=== PATIENT | male | born 1945 | race Caucasian/White ===

== ENCOUNTER 2018-09-03 10:43 | Emergency (ER) | payer MEDICARE, BC ==
[2018-09-03] MEDS ORDERED: TYLENOL SUSPENSION 160 MG/5 ML ONE (11:25)
[2018-09-03] MEDS ORDERED: Sodium Chloride 0.9% 1000 ML 1,000 ML ONE (11:25)
[2018-09-03] MEDS: Sodium Chloride 0.9% 1000 ML 1,000 ML IV STA (11:26)
[2018-09-03] MEDS: TYLENOL SUSPENSION 160 MG/5 ML PO ONE (11:26)
[2018-09-03 11:33] LABS: Hematocrit 38.7 % (42-50); Hemoglobin 12.7 gm/dl (12.5-18.0); Mean Cell Volume 87.6 fl (78-100); Mean Corpuscular Hemoglobin 28.7 pg (26-32); Mean Corpuscular Hgb Concent. 32.8 g/dl (32-36); Mean Platelet Volume 11.8 fl (6-9.5); Platelet Count 101 K/mm3 (150-450); Red Blood Count 4.42 M/mm3 (4.1-5.6); Red Cell Distribution Width 16.5 % (11.5-14.0)
[2018-09-03] MEDS: Zofran 4 MG/2 ML VIAL IV ONE (11:34)
[2018-09-03] MEDS ORDERED: Zofran 4 MG/2 ML VIAL ONE (11:34)
[2018-09-03 11:38] LABS: White Blood Count 1.6 K/mm3 (4.0-10.5)
[2018-09-03 11:39] LABS: INR 1.04 (0.8-3.0); PROTIME 12.1 SECONDS (8.83-12.87)
[2018-09-03 11:44] LABS: ALBUMIN 3.5 g/dL (3.5-5.0); ALKALINE PHOSPHATASE 228 U/L (38-126); ANION GAP 11.5 MEQ/L (5-15); BLOOD UREA NITROGEN 12 mg/dL (9-20); CHLORIDE 100 mmol/L (98-107); Calcium 8.5 mg/dL (8.4-10.2); Carbon Dioxide 27 mmol/L (22-30); Creatinine 1 0.71 mg/dL (0.66-1.25); Glucose 138 mg/dL (74-106); Potassium 4.1 mmol/L (3.5-5.1); SGOT/AST 63 U/L (17-59); SGPT/ALT 91 U/L (0-50); SODIUM 134 mmol/L (137-145)
[2018-09-03 11:59] LABS: ANISOCYTOSIS 1+; ATYPICAL LYMPHS 6 %; BAND 27 % (0.0-2.0); Eosinophil 5 % (0.00-3.0); Lymphocytes 4 % (24-44); Monocyte 7 % (0.0-12.0); Neutrophils 51 % (36.-66.); Poikilocytosis 1+; Total Cells Counted 100
[2018-09-03 12:00] LABS: Platelet Estimate DECREASED (NORMAL); Toxic Granulation 1+
[2018-09-03] MEDS: Tussionex Pennkinetic Susp PO ONE (12:51)
--- NOTE | 2018-09-03 15:27 | ERPHSYRPT ---
- History of Present Illness Source: patient Exam Limitations: no limitations Patient Subjective Stated Complaint: pt here for not eating or drinking well for 3-4 days now, he states he is getting chemo and radiation for lung and esphogeal cancer,he aslo co cough for weeks that is thick l[place]a in color, Triage Nursing Assessment: pt alert, resp easy, skin w/d/p, pt has port to right side of chest,no edema noted Physician History: Pt is a 73 y/o male with a h/o esophageal and lung CA. Pt is getting chemo and radiation for treatment. He presented to the ED with severe cough, dehydration and pain with swallowing. Pt denies F/C/S. He states, the cough is so severe, he can't get any rest. Pt does have hemoptysis. He does have hesitancy with urination and severe diarrhea. Timing/Duration: day(s) Cough Quality/Degree: severe (with blood.) Possible Cause: frequent episodes Associated Symptoms: cough, headache Allergies/Adverse Reactions: Iodinated Contrast- Oral and IV Dye Allergy (Verified 09/03/18 11:00) morphine Allergy (Verified 09/03/18 11:00) Hx Tetanus, Diphtheria Vaccination/Date Given: No Hx Influenza Vaccination/Date Given: Yes Hx Pneumococcal Vaccination/Date Given: No Immunizations Up to Date: Yes - Review of Systems Constitutional: Fatigue, Malaise Eyes: No Symptoms Ears, Nose, & Throat: No Symptoms Respiratory: Cough, Other (hemoptysis) Abdominal/Gastrointestinal: Nausea, Vomiting, Diarrhea Genitourinary Symptoms: Hesitancy Musculoskeletal: Myalgias Skin: Skin Lesions (secondary to radiation) Neurological: No Dizziness, No Focal Weakness, No Sensory Changes - Past Medical History Neurological History: Peripheral Neuropathy ENT History: Other Cardiac History: Coronary Artery Disease, High Cholesterol, Hypertension, Myocardial Infarction ([place]) Respiratory History: COPD, Lung Cancer Endocrine Medical History: Diabetes Type II Musculoskeletal History: Arthritis - Past Surgical History Past Surgical History: Yes Cardiac: CABG, Cardiac Catheterization, Cardiac Stent Gastrointestinal: Cholecystectomy Musculoskeletal: Orthopedic Surgery Other Surgical History: port a cath,knee surgery - Social History Smoking Status: Current every day smoker Exposure to second hand smoke: Yes Drug Use: none Patient Lives Alone: No - Nursing Vital Signs Nursing Vital Signs: Initial Vital Signs Temperature 97.6 F 09/03/18 10:46 Pulse Rate 63 09/03/18 10:46 Respiratory Rate 16 09/03/18 10:46 Blood Pressure 143/75 09/03/18 10:46 O2 Sat by Pulse Oximetry 96 09/03/18 10:46 Pain Scale Pain Intensity 2 - Physical Exam General Appearance: moderate distress Eye Exam: PERRL/EOMI, eyes nml inspection Ears, Nose, Throat Exam: normal ENT inspection, TMs normal, pharynx normal, moist mucous membranes Neck Exam: normal inspection, non-tender, supple, full range of motion Respiratory Exam: crackles/rales (fine, at the bases.) Cardiovascular Exam: regular rate/rhythm, normal heart sounds Gastrointestinal/Abdomen Exam: soft, No tenderness Extremity Exam: normal inspection, normal range of motion Neurologic Exam: alert, oriented x 3, cooperative, normal mood/affect, sensation nml, No motor deficits SpO2: 93 - Course Nursing assessment & vital signs reviewed: Yes - CT Exams Chest CT Interpretation: Tele-radiologist Report (Alveolar consolidation. 1.6cm nodule, unchanged in size.) Ordered Tests: Active Orders 24 hr Category Date Time Status IV Insertion STAT Care 09/03/18 11:13 Active CHEST WITHOUT CONTRAST [CT] Stat Exams 09/03/18 11:49 Taken CBC W DIFF Stat Lab 09/03/18 11:20 Results CMP Stat Lab 09/03/18 11:20 Completed Manual Differential NC Stat Lab 09/03/18 11:20 Results PROTIME WITH INR Stat Lab 09/03/18 11:20 Completed Pathologist Review Stat Lab 09/03/18 11:20 Results UA W/RFX UR CULTURE Stat Lab 09/03/18 11:12 Uncollected Medication Summary Generic Name Dose Route Start Last Admin Trade Name Freq PRN Reason Stop Dose Admin Piperacillin Sod/Tazobactam 100 mls @ 200 mls/hr 09/03/18 15:15 Sod 4.5 gm/ Dextrose IV 09/03/18 15:44 STAT ONE Vancomycin HCl 1 gm in 250 mls @ 167 mls/hr 09/03/18 15:15 Vancomycin 1gm/ Ns 250ml IV 09/03/18 16:44 STAT ONE Discontinued Medications Generic Name Dose Route Start Last Admin Trade Name Freq PRN Reason Stop Dose Admin Acetaminophen 1,000 mg 09/03/18 11:20 09/03/18 11:26 Tylenol Suspension 160 Mg/5 Ml PO 09/03/18 11:21 1,000 mg STAT ONE Administration Acetaminophen Confirm 09/03/18 11:25 Tylenol Suspension 160 Mg/5 Ml Administered 09/03/18 11:26 Dose 160 mg .ROUTE .STK-MED ONE Chlorphenir/Hydrocodone Polistirex 5 ml 09/03/18 12:36 09/03/18 12:51 Tussionex Pennkinetic Susp PO 09/03/18 12:37 5 ml STAT ONE Administration Sodium Chloride 1,000 mls @ 999 mls/hr 09/03/18 11:13 09/03/18 11:26 Sodium Chloride 0.9% 1000 Ml IV 09/03/18 12:13 999 mls/hr .Q1H1M STA Administration Sodium Chloride Confirm 09/03/18 11:25 Sodium Chloride 0.9% 1000 Ml Administered 09/03/18 11:26 Dose 1,000 mls @ ud .ROUTE .STK-MED ONE Ondansetron HCl 4 mg 09/03/18 11:33 09/03/18 11:34 Zofran 4 Mg/2 Ml Vial IV 09/03/18 11:34 4 mg STAT ONE Administration Ondansetron HCl Confirm 09/03/18 11:34 Zofran 4 Mg/2 Ml Vial Administered 09/03/18 11:35 Dose 4 mg .ROUTE .STK-MED ONE Lab/Rad Data: Laboratory Result Diagrams 09/03/18 11:20 09/03/18 11:20 Laboratory Results 09/03/18 09/03/18 09/03/18 Range/Units 11:20 11:20 11:20 WBC 1.6 L* (4.0-10.5) K/mm3 RBC 4.42 (4.1-5.6) M/mm3 Hgb 12.7 (12.5-18.0) gm/dl Hct 38.7 L (42-50) % MCV 87.6 (78-100) fl MCH 28.7 (26-32) pg MCHC 32.8 (32-36) g/dl RDW 16.5 H (11.5-14.0) % Plt Count 101 L (150-450) K/mm3 MPV 11.8 H (6-9.5) fl Segmented Neutrophils 51 (36.-66.) % Band Neutrophils 27 H (0.0-2.0) % Lymphocytes (Manual) 4 L (24-44) % Monocytes (Manual) 7 (0.0-12.0) % Eosinophils (Manual) 5 H (0.00-3.0) % Atypical Lymphocytes 6 % Toxic Granulation 1+ Platelet Estimate DECREASED (NORMAL) RBC Morphology ABNORMAL Poikilocytosis 1+ Anisocytosis 1+ Smear Path Review Pending PT 12.1 (8.83-12.87) SECONDS INR 1.04 (0.8-3.0) Sodium 134 L (137-145) mmol/L Potassium 4.1 (3.5-5.1) mmol/L Chloride 100 (98-107) mmol/L Carbon Dioxide 27 (22-30) mmol/L Anion Gap 11.5 (5-15) MEQ/L BUN 12 (9-20) mg/dL Creatinine 0.71 (0.66-1.25) mg/dL Estimated GFR > 60.0 ML/MIN Glucose 138 H (74-106) mg/dL Calcium 8.5 (8.4-10.2) mg/dL Total Bilirubin 1.50 H (0.2-1.3) mg/dL AST 63 H (17-59) U/L ALT 91 H (0-50) U/L Alkaline Phosphatase 228 H (38-126) U/L Serum Total Protein 6.0 L (6.3-8.2) g/dL Albumin 3.5 (3.5-5.0) g/dL - Progress Progress: unchanged Air Movement: fair Progress Note: Pt had labs in the ED that showed leukopenia with WBCs of 1.6. Other labs were normal. I was not able to get UA, as pt has hesitancy, and was able to urinate with diarrhea episode only. Chest CT was done without contrast, secondary to pt 's dye allergy, and showed PNA. Secondary to his oncologists and radiation oncologist being in [place], and pt's request, he will be transfered to [place] for his PNA. Zosyn and Vanco were initiated in the ED. Zofran was given for nausea , and Tussionex syr for cough. 09/03/18 15:34 Blood Culture(s) Obtained: No Antibiotics given: Yes Counseled pt/family regarding: lab results, rad results - Departure Time of Disposition: 15:37 Departure Disposition: Transfer Clinical Impression: PNA in immunocompromised host Condition: Stable Critical Care Time: No Referrals: KRISHAN CARDENAS [Primary Care Provider] - Additional Instructions: Pt will be transfered to [facility], as direct admit. Dr Mesa accepts.
[2018-09-03] MEDS ORDERED: Zosyn INJ IV ONE (15:35)
[2018-09-03] MEDS ORDERED: Sodium Chloride 0.9% 100 ML IVPB 100 ML IV ONE (15:36)
[2018-09-03] MEDS: Zosyn INJ 4.5 GM in D5w 100ML Mini Bag 100 ML 100 ML IV ONE (15:43)
[2018-09-03] MEDS ORDERED: Vancomycin 1GM/ Ns 250ML*** 250 ML IV ONE (16:25)
[2018-09-03] MEDS: Vancomycin 1GM/ Ns 250ML*** 1 GM/250 ML IVPB IV ONE (16:28)
[2018-09-03 16:59] VITALS: BP 122/78; PULSE 72; O2SAT 98
--- NOTE | 2018-09-03 21:54 | XRAY ---
Indication: Cough. Dysphagia. 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 Multiple contiguous axial images obtained through the chest without contrast as ordered. Comparison: Outside CT chest without contrast from [facility] in [place] dictated May 25, 2018. Again diffuse peripheral fibrosis/scarring more than before, greatest left upper lobe. Also new moderate bibasilar atelectasis. Stable 1.7 x 2.7 cm lobular left upper lobe mass. No new pulmonary mass, consolidation, or effusion. Heart is not enlarged again with CABG surgery. Aorta remains mildly arteriosclerotic without aneurysmal dilatation. New right Port-A-Cath. No pathologic mediastinal lymphadenopathy. Stable mid to distal esophageal wall thickening and small hiatal hernia. Bony thorax intact again with flowing osteophytes throughout the spine and sternotomy wires. Limited upper abdomen unremarkable again with incidental cholecystectomy clips and calcified splenic granulomas. Impression: 1. Grossly stable left upper lobe mass presumed known carcinoma. 2. Increasing diffuse peripheral fibrosis/scarring presumably related to patient's therapy. 3. No acute cardiopulmonary abnormalities on this noncontrast exam. 4. Stable small hiatal hernia and mid to distal esophageal wall thickening possibly esophagitis from gastroesophageal reflux. Comment: Preliminary interpretation was made by [facility]. No critical discrepancy. CTDI 16.74
== END 2018-09-03 17:01 | disposition short-term general hospital (02) ==
LOC: ED 10:43
DX: J18.9 Pneumonia, unspecified organism (principal); I25.10 Atherosclerotic heart disease of native coronary artery without angina pectoris; I10 Essential (primary) hypertension; C34.90 Malignant neoplasm of unspecified part of unspecified bronchus or lung; Z79.899 Other long term (current) drug therapy; E78.00 Pure hypercholesterolemia, unspecified; J44.9 Chronic obstructive pulmonary disease, unspecified; E11.9 Type 2 diabetes mellitus without complications; M19.90 Unspecified osteoarthritis, unspecified site; G62.9 Polyneuropathy, unspecified; C15.9 Malignant neoplasm of esophagus, unspecified; R51 Headache
CPT/HCPCS: 36415; 71250; 80053; 85025; 85610; 87040; 96365; 96374; 99285; J2405; J2543; J3370; A9270-GY

== ENCOUNTER 2018-10-12 14:40 | Emergency (ER) | payer MEDICARE, BC ==
[2018-10-12 15:06] VITALS: O2SAT 98
--- NOTE | 2018-10-12 15:25 | ERPHSYRPT ---
- History of Present Illness Time Seen by Provider: 10/12/18 15:10 Source: patient, family Exam Limitations: no limitations Patient Subjective Stated Complaint: weakness, hasn't eaten anything in over a week, sleeps 23 hours a day, urine is really dark and has blood clots in it, nausea, throat cancer, lung cancer, last radiation and chemo 2 weeks ago today Triage Nursing Assessment: Came in with a wheelchair, weak, tachycardic, HTN, port in right chest, lungs clear, denies pain, sores on back where he states that he scratches, family stated that he is developing a pressure ulcer to the right buttock and the skin has not broken apart, no edema Physician History: 73 y/o white male with h/o lung cancer and esophageal cancer who received last chemoradiation 2 weeks ago, presents with weakness and poor oral intake of solids and liquids. pt on marinol for appetite stimulation. pt denies cp, denies soa and denies abd pain. pt has a very poor heart per pt family. pt seen by dr. reyes, mains and service supervisor, who recently did not release pt to receive more chemotx because of poor cardiac function. pt has a feeding tube placement scheduled at [facility] on TuesdayOctober 16. pt denies n/v/ d. pt sleeps 23 hours a day per family. pt recently dx with afib. Timing/Duration: week(s) (2 to 3) Severity: moderate Modifying Factors: Improves With: eating Associated Symptoms: loss of appetite, weakness Allergies/Adverse Reactions: Iodinated Contrast- Oral and IV Dye Allergy (Verified 10/12/18 15:06) morphine Allergy (Verified 10/12/18 15:06) Home Medications: Amantadine HCl [Amantadine] 100 mg PO BID 10/12/18 [History] Aspirin EC 81 mg [Ecotrin 81 mg] 81 mg PO DAILY 10/12/18 [History] Atorvastatin Calcium 40 mg PO DAILY 10/12/18 [History] Benzonatate 200 mg PO 5XD PRN 10/12/18 [History] Budesonide 4 ml PO QAM 10/12/18 [History] Fluoxetine HCl 60 mg PO DAILY 10/12/18 [History] Furosemide 20 mg [Lasix 20 mg] 20 mg PO UD 10/12/18 [History] Gabapentin 300 mg PO TID 10/12/18 [History] Hydrocodone/Acetaminophen [Hydrocodone-Acetamin 5-325 mg] 1 tab PO Q4H PRN PRN 10/12/18 [History] Hydrocodone/Chlorpheniramine [Vituz Solution] 2.5 ml PO Q12H PRN PRN 10/12/18 [ History] Lorazepam 0.5 mg [Ativan 0.5 MG] 0.5 mg PO Q4H PRN 10/12/18 [History] Magnesium Oxide [Magnesium] 500 mg PO DAILY 10/12/18 [History] Metoprolol Succinate 25 mg Xl* [Toprol-Xl 25MG Tablets] 12.5 mg PO BID [History] Omeprazole Magnesium 20 mg PO DAILY 10/12/18 [History] Hx Tetanus, Diphtheria Vaccination/Date Given: No Hx Influenza Vaccination/Date Given: Yes Hx Pneumococcal Vaccination/Date Given: No - Review of Systems Constitutional: Lethargy, Malaise, Weakness Eyes: No Symptoms Ears, Nose, & Throat: No Symptoms Respiratory: No Symptoms Cardiac: No Symptoms Abdominal/Gastrointestinal: No Symptoms Genitourinary Symptoms: No Symptoms Musculoskeletal: No Symptoms Skin: No Symptoms Neurological: No Symptoms Psychological: No Symptoms Endocrine: No Symptoms Hematologic/Lymphatic: No Symptoms Immunological/Allergic: No Symptoms All Other Systems: Reviewed and Negative - Past Medical History Pertinent Past Medical History: Yes Neurological History: Peripheral Neuropathy ENT History: Other Cardiac History: Coronary Artery Disease, High Cholesterol, Hypertension, Myocardial Infarction ([place]) Respiratory History: COPD, Lung Cancer Endocrine Medical History: Diabetes Type II Musculoskeletal History: Arthritis GI Medical History: Hernia Other Medical History: throat cancer - Past Surgical History Past Surgical History: Yes Cardiac: CABG, Cardiac Catheterization, Cardiac Stent Gastrointestinal: Cholecystectomy Musculoskeletal: Orthopedic Surgery Other Surgical History: port a cath,knee surgery - Social History Smoking Status: Current some day smoker How long have you smoked: 54 years Exposure to second hand smoke: Yes Drug Use: none Patient Lives Alone: No - Nursing Vital Signs Nursing Vital Signs: Initial Vital Signs Temperature 97.7 F 10/12/18 14:51 Pulse Rate 110 H 10/12/18 14:51 Respiratory Rate 18 10/12/18 14:51 Blood Pressure 150/117 10/12/18 14:51 O2 Sat by Pulse Oximetry 98 04/18/19 14:51 Pain Scale Pain Intensity 0 - Physical Exam General Appearance: no apparent distress, alert Eye Exam: PERRL/EOMI Ears, Nose, Throat Exam: normal ENT inspection, dry mucous membranes Neck Exam: normal inspection, non-tender, supple, full range of motion Respiratory Exam: normal breath sounds, lungs clear, airway intact, No chest tenderness, No respiratory distress Cardiovascular Exam: regular rate/rhythm, normal heart sounds, normal peripheral pulses Gastrointestinal/Abdomen Exam: soft, normal bowel sounds, No tenderness Rectal Exam: not done Back Exam: normal inspection, normal range of motion, vertebral tenderness, No CVA tenderness Extremity Exam: normal inspection, normal range of motion, pelvis stable Neurologic Exam: alert, oriented x 3, normal mood/affect Skin Exam: normal color Lymphatic Exam: No adenopathy SpO2 Interpretation: normal SpO2: 98 O2 Delivery: Room Air - Course EKG Interpreted by Me: RATE (105), A-fib, Left [place] Deviation, Right Bundle Branch Block, Other (left ant fascicular block; prolonged qrs; no comparison) Ordered Tests: Active Orders 24 hr Category Date Time Status Clean Catch Urine Specimen STAT Care 10/12/18 15:25 Active IV Insertion STAT Care 10/12/18 15:25 Active CBC W DIFF Stat Lab 10/12/18 14:50 Completed CMP Stat Lab 10/12/18 14:50 Completed Manual Differential NC Stat Lab 10/12/18 14:50 Completed PROTIME WITH INR Stat Lab 10/12/18 14:50 Completed UA W/RFX UR CULTURE Stat Lab 10/12/18 15:29 Completed Medication Summary Discontinued Medications Generic Name Dose Route Start Last Admin Trade Name Allenq PRN Reason Stop Dose Admin Sodium Chloride 500 mls @ 500 mls/hr 10/12/18 15:30 10/12/18 17:29 Sodium Chloride 0.9% 500 Ml IV 10/12/18 16:29 Infused .Q1H ONE Infusion Sodium Chloride Confirm 10/12/18 15:48 Sodium Chloride 0.9% 500 Ml Administered 10/12/18 15:49 Dose 500 mls @ ud IV .STK-MED ONE Lactated Ringer's 500 mls @ 500 mls/hr 10/12/18 17:25 10/12/18 18:39 Lactated Ringers IV 10/12/18 18:24 Infused .Q1H ONE Infusion Lactated Ringer's Confirm 10/12/18 17:30 Lactated Ringers Administered 10/12/18 17:31 Dose 1,000 mls @ ud IV .STK-MED ONE Lab/Rad Data: Laboratory Result Diagrams 10/12/18 14:50 10/12/18 14:50 Laboratory Results 10/12/18 10/12/18 10/12/18 Range/Units 15:29 14:50 14:50 WBC (4.0-10.5) K/mm3 RBC (4.1-5.6) M/mm3 Hgb (12.5-18.0) gm/dl Hct (42-50) % MCV (78-100) fl MCH (26-32) pg MCHC (32-36) g/dl RDW (11.5-14.0) % Plt Count (150-450) K/mm3 MPV (6-9.5) fl Segmented Neutrophils (36.-66.) % Lymphocytes (Manual) (24-44) % Toxic Granulation Platelet Estimate (NORMAL) RBC Morphology Anisocytosis PT 14.5 H (8.83-12.87) SECONDS INR 1.24 (0.8-3.0) Sodium 139 (137-145) mmol/L Potassium 3.3 L (3.5-5.1) mmol/L Chloride 104 (98-107) mmol/L Carbon Dioxide 20 L (22-30) mmol/L Anion Gap 18.1 H (5-15) MEQ/L BUN 13 (9-20) mg/dL Creatinine 0.98 (0.66-1.25) mg/dL Estimated GFR > 60.0 ML/MIN Glucose 208 H (74-106) mg/dL Calcium 8.8 (8.4-10.2) mg/dL Total Bilirubin 1.30 (0.2-1.3) mg/dL AST 46 (17-59) U/L ALT 58 H (0-50) U/L Alkaline Phosphatase 143 H (38-126) U/L Serum Total Protein 6.2 L (6.3-8.2) g/dL Albumin 3.3 L (3.5-5.0) g/dL Urine Color DOMO (YELLOW) Urine Appearance SLIGHTLY CLOUDY (CLEAR) Urine pH 5.0 (5-6) Ur Specific [place] 1.026 (1.005-1.025) Urine Protein 30 (Negative) Urine Ketones TRACE (NEGATIVE) Urine Blood NEGATIVE (0-5) Olvin/ul Urine Nitrite NEGATIVE (NEGATIVE) Urine Bilirubin NEGATIVE (NEGATIVE) Urine Urobilinogen 4 (0-1) mg/dL Ur Leukocyte Esterase NEGATIVE (NEGATIVE) Urine WBC (Auto) 0-2 (0-5) /HPF Urine RBC (Auto) 0-2 (0-2) /HPF U Hyaline Cast (Auto) 3-5 (0-2) /LPF U Epithel Cells (Auto) NONE (FEW) /HPF Urine Bacteria (Auto) NONE (NEGATIVE) /HPF Urine Mucus (Auto) SLIGHT (NEGATIVE) /HPF Urine Culture Reflexed NO (NO) Urine Glucose NEGATIVE (NEGATIVE) mg/dL 10/12/18 Range/Units 14:50 WBC 9.4 (4.0-10.5) K/mm3 RBC 4.05 L (4.1-5.6) M/mm3 Hgb 12.1 L (12.5-18.0) gm/dl Hct 37.9 L (42-50) % MCV 93.6 (78-100) fl MCH 29.8 (26-32) pg MCHC 31.9 L (32-36) g/dl RDW 19.6 H (11.5-14.0) % Plt Count 173 (150-450) K/mm3 MPV 11.2 H (6-9.5) fl Segmented Neutrophils 80 H (36.-66.) % Lymphocytes (Manual) 20 L (24-44) % Toxic Granulation 1+ Platelet Estimate NORMAL (NORMAL) RBC Morphology ABNORMAL Anisocytosis 1+ PT (8.83-12.87) SECONDS INR (0.8-3.0) Sodium (137-145) mmol/L Potassium (3.5-5.1) mmol/L Chloride (98-107) mmol/L Carbon Dioxide (22-30) mmol/L Anion Gap (5-15) MEQ/L BUN (9-20) mg/dL Creatinine (0.66-1.25) mg/dL Estimated GFR ML/MIN Glucose (74-106) mg/dL Calcium (8.4-10.2) mg/dL Total Bilirubin (0.2-1.3) mg/dL AST (17-59) U/L ALT (0-50) U/L Alkaline Phosphatase (38-126) U/L Serum Total Protein (6.3-8.2) g/dL Albumin (3.5-5.0) g/dL Urine Color (YELLOW) Urine Appearance (CLEAR) Urine pH (5-6) Ur Specific [place] (1.005-1.025) Urine Protein (Negative) Urine Ketones (NEGATIVE) Urine Blood (0-5) Olvin/ul Urine Nitrite (NEGATIVE) Urine Bilirubin (NEGATIVE) Urine Urobilinogen (0-1) mg/dL Ur Leukocyte Esterase (NEGATIVE) Urine WBC (Auto) (0-5) /HPF Urine RBC (Auto) (0-2) /HPF U Hyaline Cast (Auto) (0-2) /LPF U Epithel Cells (Auto) (FEW) /HPF Urine Bacteria (Auto) (NEGATIVE) /HPF Urine Mucus (Auto) (NEGATIVE) /HPF Urine Culture Reflexed (NO) Urine Glucose (NEGATIVE) mg/dL - Progress Progress: improved Progress Note: 10/12/18 17:26 pt states he is feeling better. Counseled pt/family regarding: lab results, diagnosis, need for follow-up - Departure Departure Disposition: Home Clinical Impression: Weakness, Poor appetite, Failure to thrive in adult Condition: Stable Critical Care Time: No Referrals: KRISHAN CARDENAS [Primary Care Provider] - Additional Instructions: push oral liquids. call primary care physician tomorrow morning to arrange for further management
[2018-10-12] MEDS ORDERED: Sodium Chloride 0.9% 500 ML 500 ML IV ONE ×2 (15:30→15:48)
[2018-10-12 15:49] LABS: Hematocrit 37.9 % (42-50); Hemoglobin 12.1 gm/dl (12.5-18.0); Mean Cell Volume 93.6 fl (78-100); Mean Corpuscular Hgb Concent. 31.9 g/dl (32-36); Mean Platelet Volume 11.2 fl (6-9.5); Platelet Count 173 K/mm3 (150-450); Red Blood Count 4.05 M/mm3 (4.1-5.6); Red Cell Distribution Width 19.6 % (11.5-14.0); White Blood Count 9.4 K/mm3 (4.0-10.5)
[2018-10-12 15:55] LABS: Mean Corpuscular Hemoglobin 29.8 pg (26-32)
[2018-10-12 16:00] LABS: INR 1.24 (0.8-3.0); PROTIME 14.5 SECONDS (8.83-12.87)
[2018-10-12 16:04] LABS: ALBUMIN 3.3 g/dL (3.5-5.0); ALKALINE PHOSPHATASE 143 U/L (38-126); ANION GAP 18.1 MEQ/L (5-15); BLOOD UREA NITROGEN 13 mg/dL (9-20); CHLORIDE 104 mmol/L (98-107); Calcium 8.8 mg/dL (8.4-10.2); Carbon Dioxide 20 mmol/L (22-30); Creatinine 1 0.98 mg/dL (0.66-1.25); Glucose 208 mg/dL (74-106); Potassium 3.3 mmol/L (3.5-5.1); SGOT/AST 46 U/L (17-59); SODIUM 139 mmol/L (137-145); Total Protein 6.2 g/dL (6.3-8.2)
[2018-10-12 16:13] LABS: SGPT/ALT 58 U/L (0-50)
[2018-10-12 16:41] LABS: ANISOCYTOSIS 1+; Lymphocytes 20 % (24-44); Neutrophils 80 % (36.-66.); Platelet Estimate NORMAL (NORMAL); Total Cells Counted 100; Toxic Granulation 1+
[2018-10-12] MEDS ORDERED: Lactated Ringers 500 ML IV ONE (17:25)
[2018-10-12] MEDS ORDERED: Lactated Ringers 1,000 ML IV ONE (17:30)
[2018-10-12 18:16] VITALS: BP 130/78
[2018-10-12 18:34] LABS: Appearance SLIGHTLY CLOUDY (CLEAR); Bilirubin NEGATIVE (NEGATIVE); Blood NEGATIVE Ery/ul (0-5); Glucose NEGATIVE (NEGATIVE); Ketones TRACE (NEGATIVE); Leukocyte Esterase NEGATIVE (NEGATIVE); Mucus SLIGHT /HPF (NEGATIVE); Nitrite NEGATIVE (NEGATIVE); Protein,Urine Dip 30 (Negative); RBC 0-2 /HPF (0-2); Specific Gravity 1.026 (1.005-1.025); Urobilinogen 4 mg/dL (0-1); WBC 0-2 /HPF (0-5)
[2018-10-12 18:57] VITALS: PULSE 100
== END 2018-10-12 19:06 | disposition home or self-care (01) ==
LOC: ED 14:40
DX: R63.1 Polydipsia (principal); R63.0 Anorexia; R62.7 Adult failure to thrive; I10 Essential (primary) hypertension; I25.810 Atherosclerosis of coronary artery bypass graft(s) without angina pectoris; E78.00 Pure hypercholesterolemia, unspecified; E11.9 Type 2 diabetes mellitus without complications; G62.9 Polyneuropathy, unspecified; M19.90 Unspecified osteoarthritis, unspecified site; Z85.118 Personal history of other malignant neoplasm of bronchus and lung; Z85.01 Personal history of malignant neoplasm of esophagus; Z79.899 Other long term (current) drug therapy; I25.2 Old myocardial infarction
CPT/HCPCS: 36000; 36415; 80053; 81001; 85025; 85610; 96360; 96361; 99284; J1642